=== PATIENT | male | born 1950 | race Caucasian/White ===

== ENCOUNTER 2021-09-07 13:01 | Outpatient (CLI) | payer OTHER, SELFPAY ==
--- NOTE | 2021-09-07 13:00 | MR_ITS ---
WS: [id number] MRI HEAD WITH CONTRAST TECHNIQUE: Sagittal T1, T2 axial, T2 axial FLAIR, axial susceptibility weighted imaging, axial diffus ion weighted images, and coronal T2 images were obtained. Pre and post-T1 axial and post T1 coronal i mages. ADC and FSPGR images. CLINICAL INFORMATION: PROBLEMS WITH MEMORY COMPARISON: None. FINDINGS: No evidence of restricted diffusion to suggest acute ischemia. Ventricular system and basal cisterns are patent. Mild small vessel changes with moderate parenchymal volume loss. Normal posterior fossa. Normal vascular flow voids at the skull base. No extra axial fluid collections. No evidence of mass o r mass effect. Paranasal sinuses and mastoid air cells are well aerated. No hemosiderin on the susceptibly weighted images. Normal optic chiasm and pituitary infundibulum. Advanced symmetric atrophy temporal lobes and hippocampal formations. No abnormal gadolinium enhancement. Normal dural venous sinuses. MR/MR head wo/w con [id number] IMPRESSION: 1. No evidence of restricted diffusion to suggest acute ischemia. 2. Mild small vessel changes with moderate to advanced parenchymal volume loss . 3. Advanced symmetric atrophy temporal lobes and hippocampal formations. 4. No hemosiderin on susceptibly weighted images. 5. No abnormal gadolinium enhancement.
[2021-09-07] MEDS: gadobenate dimeglumine 20 mL vial IV (13:53)
== END 2021-09-07 13:02 | disposition home or self-care (01) ==
PROVIDERS: Visit Provider Emergency Medicine Emergency Medical Services
DX: R41.3 Other amnesia (principal)
CPT/HCPCS: 70553; A9577

== ENCOUNTER → 2021-11-04 13:53 | Outpatient (BNVA) | payer OTHER, SELFPAY | PROVIDERS: Referring Provider Emergency Medicine Emergency Medical Services; Visit Provider Specialist | DX: G30.9 Alzheimer's disease, unspecified (principal); F02.80 Dementia in other diseases classified elsewhere, unspecified severity, without behavioral disturbance, psychotic disturbance, mood disturbance, and anxiety | CPT/HCPCS: 96116; 99204; 99205 ==

== ENCOUNTER 2022-03-08 15:11 | Emergency (ER) | payer OTHER, SELFPAY ==
[2022-03-08 15:19] VITALS: BP 96/55; PULSE 86; RESP 18; TEMP 36.1; O2SAT 94; BMI 24.2
--- NOTE | 2022-03-08 16:00 | CTR_ITS ---
PROCEDURE INFORMATION: Exam: CT Abdomen And Pelvis With Contrast Exam date and time: 03/08/2022 5:48 PM Age: 71 years old Clinical indication: Other: Jaundice TECHNIQUE: Imaging protocol: Computed tomography of the abdomen and pelvis with contrast. Radiation optimization: All CT scans at this facility use at least one of these dose optimization techniques: automated exposure control; mA and/or kV adjustment per patient size (includes targeted exams where dose is matched to clinical indication); or iterative reconstruction. Contrast material: OMNI 300; Contrast volume: 55 ml; Contrast route: INTRAVENOUS (IV); COMPARISON: No relevant prior studies available. RADIATION DOSE METRICS: Total DLP (mGy-cm): 1344.57 FINDINGS: Lungs: Bibasilar atelectasis versus infiltrate. Lingular 8.5 mm pulmonary nodule, dedicated chest CT advised for further evaluation. Right lower lobe 3 cm somewhat dense airspace opacity may reflect a pneumonic infiltrate, and underlying pulmonary nodule is also a consideration, dedicated chest CT could further evaluate this. Heart: Cardiomegaly. Coronary artery atherosclerotic calcifications. Liver: Normal. No mass. Gallbladder and bile ducts: Intrahepatic biliary dilation and dilation of common bile duct to 2 cm with a suspected 2.5 cm mass in the pancreatic head perhaps causing biliary obstruction, further evaluation with MRCP/pancreatic MRI advised as finding is concerning for underlying pancreatic malignancy. Associated dilation of the pancreatic duct is also seen measuring 9.3 mm. Cholecystectomy. Pancreas: See Gallbladder and bile ducts finding. Spleen: Normal. No splenomegaly. Adrenal glands: Normal. No mass. Kidneys and ureters: Normal. No hydronephrosis. Stomach and bowel: Constipation. Diverticulosis without diverticulitis. Appendix: No evidence of appendicitis. Intraperitoneal space: Unremarkable. No free air. No significant fluid collection. Vasculature: Main pulmonary artery is dilated which can be a finding of chronic pulmonary artery hypertension. Lymph nodes: Unremarkable. No enlarged lymph nodes. Urinary bladder: Unremarkable as visualized. Reproductive: Unremarkable as visualized. Bones/joints: Unremarkable. No acute fracture. Soft tissues: Unremarkable. CT/CT abdomen pelvis w con* [id number] IMPRESSION: 1. Intrahepatic biliary dilation and dilation of common bile duct to 2 cm with a suspected 2.5 cm mass in the pancreatic head perhaps causing biliary obstruction, further evaluation with MRCP/pancreatic MRI advised as finding is concerning for underlying pancreatic malignancy. Associated dilation of the pancreatic duct is also seen measuring 9.3 mm. 2. Constipation. 3. Diverticulosis without diverticulitis. 4. Bibasilar atelectasis versus infiltrate. 5. Lingular 8.5 mm pulmonary nodule, dedicated chest CT advised for further evaluation. 6. Right lower lobe 3 cm somewhat dense airspace opacity may reflect a pneumonic infiltrate, and underlying pulmonary nodule is also a consideration, dedicated chest CT could further evaluate this. 7. Cardiomegaly. 8. Coronary artery atherosclerotic calcifications. 9. Main pulmonary artery is dilated which can be a finding of chronic pulmonary artery hypertension. 10. Cholecystectomy.
--- NOTE | 2022-03-08 16:02 | W.ED.GENADLT ---
Documented by User: Kashmir Gutierrez MD 03/08/22 16:07 HPI - General Adult General: Chief complaint: General Medical Stated complaint: JAUNDICE Time Seen by Provider: 03/08/22 15:14 Source: patient and EMS Mode of arrival: EMS Limitations: no limitations History of Present Illness: 71-year-old male who has a history of some mild dementia was sent here today for jaundice. Patient has no complaints he denies any abdominal pain but he is quite jaundiced with scleral icterus. He started a new medicine a few months ago galantamine for his dementia he denies any other changes he has had no vomiting no diarrhea he denies any alcohol abuse or known liver issues. PFSH ED PFSH: Social History Smoking and tobacco status: current every day smoker History of recent travel: No Physical Exam Const: COMMON NORMALS: patient oriented x3 and healthy appearing HENMT: COMMON NORMALS: normocephalic and atraumatic HEAD & SCALP: normocephalic and atraumatic Eye: COMMON NORMALS: Equal, round and reactive pupils present and EOMs intact bilaterally PUPIL: Yes Equal, round and reactive pupils present OTHER: Scleral icterus noted Neck/C-Spine: COMMON NORMALS: full ROM and supple Chest: COMMONS NORMALS: normal inspection of the chest and normal palpation of entire chest wall Resp: COMMON NORMALS: normal respiratory effort, No retractions, No use of accessory muscles and clear to auscultation bilaterally AUSCULTATION: clear to auscultation bilaterally Cardio: COMMON NORMALS: regular rate, regular rhythm and No murmurs present (Cardio) RATE: regular rate RHYTHM: regular rhythm GI: COMMON NORMALS: Normal to inspection, nondistended, normoactive bowel sounds present, Soft to palpation, non-tender and no masses PALPATION: Yes Soft to palpation Extremity: COMMON NORMALS: normal to inspection and full ROM Neuro: COMMON NORMALS: patient oriented x3, moves all extremities and no focal motor deficits Psych: COMMON NORMALS: mental status grossly normal, Normal thought process present and cooperative THOUGHT PROCESS: Normal thought process present Skin: COMMON NORMALS: no rashes or lesions noted and no wounds NARRATIVE SKIN EXAM: Patient is jaundiced GENERAL SKIN EXAM: no rashes or lesions noted Course Vital Signs: Vital signs: Vital Signs Temperature 98.1 F 03/08/22 22:07 Pulse Rate 91 03/08/22 22:07 Respiratory Rate 18 03/08/22 22:07 Blood Pressure 149/71 03/08/22 22:07 Pulse Oximetry 97 03/08/22 22:07 [facility] - General Adult Lab Data : 03/08/22 16:06 03/08/22 16:06 Radiology Impressions Abdomen/Pelvis CT 03/08/22 16:00 IMPRESSION: 1. Intrahepatic biliary dilation and dilation of common bile duct to 2 cm with a suspected 2.5 cm mass in the pancreatic head perhaps causing biliary obstruction, further evaluation with MRCP/pancreatic MRI advised as finding is concerning for underlying pancreatic malignancy. Associated dilation of the pancreatic duct is also seen measuring 9.3 mm. 2. Constipation. 3. Diverticulosis without diverticulitis. 4. Bibasilar atelectasis versus infiltrate. 5. Lingular 8.5 mm pulmonary nodule, dedicated chest CT advised for further evaluation. 6. Right lower lobe 3 cm somewhat dense airspace opacity may reflect a pneumonic infiltrate, and underlying pulmonary nodule is also a consideration, dedicated chest CT could further evaluate this. 7. Cardiomegaly. 8. Coronary artery atherosclerotic calcifications. 9. Main pulmonary artery is dilated which can be a finding of chronic pulmonary artery hypertension. 10. Cholecystectomy. Laboratory Results WBC 7.1 10^3/uL (4.0-10.0) 03/08/22 16:06 RBC 5.27 10^6/uL (4.1-5.3) 03/08/22 16:06 Hgb 16.3 g/dL (11.7-16.6) 03/08/22 16:06 Hct 49.6 % (42.0-52.0) 03/08/22 16:06 MCV 94.1 fl (80-94) H 03/08/22 16:06 MCH 30.9 pg (28.0-34.0) 03/08/22 16:06 MCHC 32.9 g/dL (30.0-36.0) 03/08/22 16:06 RDW 15.2 % (12.1-15.1) H 03/08/22 16:06 Plt Count 226 10^3/cmm (130-400) 03/08/22 16:06 MPV 11.5 fL (7.4-10.4) H 03/08/22 16:06 Neut % (Auto) 78.5 % 03/08/22 16:06 Lymph % (Auto) 12.5 % 03/08/22 16:06 Nicholas % (Auto) 6.6 % 03/08/22 16:06 Eos % (Auto) 0.4 % 03/08/22 16:06 Baso % (Auto) 0.7 % 03/08/22 16:06 Neut # (Auto) 5.59 10^3/uL (1.8-7.7) 03/08/22 16:06 Lymph # (Auto) 0.9 10^3/uL (0.8-4.8) 03/08/22 16:06 Nicholas # (Auto) 0.5 10^3/uL (0.2-0.9) 03/08/22 16:06 Eos # (Auto) 0.0 10^3/uL (0.0-0.8) 03/08/22 16:06 Baso # (Auto) 0.1 10^3/uL (0.0-0.1) 03/08/22 16:06 Nucleated RBC % (auto) 0 % 03/08/22 16:06 Nucleated RBCs # 0.0 /100WBC 03/08/22 16:06 PT 13.50 SECONDS (12.1-14.9) 03/08/22 16:06 INR 1.00 (0.8-1.2) 03/08/22 16:06 Sodium 137 mmol/L (136-145) 03/08/22 16:06 Potassium 3.1 mmol/L (3.5-5.1) L 03/08/22 16:06 Chloride 91 mmol/L (98-107) L 03/08/22 16:06 Carbon Dioxide 31 mmol/L (22-29) H 03/08/22 16:06 Anion Gap 18.1 (5-19) 03/08/22 16:06 BUN 12 mg/dL (8-23) 03/08/22 16:06 Creatinine 0.2 mg/dL (0.7-1.2) L 03/08/22 16:06 GFR Calculation Not Reportable 03/08/22 16:06 Glucose 132 mg/dL (65-115) H 03/08/22 16:06 Calculated Osmolality 286 mOsm/kg (285-295) 03/08/22 16:06 Calcium 9.2 mg/dL (8.5-10.5) 03/08/22 16:06 Total Bilirubin 24.3 mg/dL (0.15-1.2) H* 03/08/22 16:06 Direct Bilirubin > 18.70 mg/dL (0.00-0.30) H 03/08/22 16:06 AST 166 U/L (0-40) H 03/08/22 16:06 ALT 167 U/L (0-41) H 03/08/22 16:06 Alkaline Phosphatase 1112 IU/L (40-130) H* 03/08/22 16:06 Total Protein 5.7 g/dL (6.6-8.7) L 03/08/22 16:06 Albumin 3.2 g/dL (3.5-5.2) L 03/08/22 16:06 Globulin 2.5 g/dL (1.3-4.6) 03/08/22 16:06 Lipase 6 U/L (13-60) L 03/08/22 16:06 Discharge Plan Discharge Condition: Stable Prescriptions: No Action glipizide 10 mg tablet 20 mg PO BID 0RF pravastatin 20 mg tablet 10 mg PO QPM 0RF tamsulosin 0.4 mg capsule 0.4 mg PO QAM 0RF galantamine 4 mg tablet 4 mg PO BID Qty: 60 3RF Rx Instructions: administer with AM and PM meals ferrous sulfate [iron] 325 mg (65 mg iron) Tablet 325 mg PO QAM 0RF metformin 1,000 mg Tablet 500 mg PO BID 0RF Vitamin D3 50 mcg (2,000 unit) Tablet 50 mcg PO QAM 0RF alogliptin 12.5 mg Tablet 12.5 mg PO QAM 0RF empagliflozin 25 mg Tablet 12.5 mg PO QAM 0RF Sign Out Sign Out Data: Patient Sign Out occurred on 03/08/22 at 18:06. Patient's care was discussed, and care was transferred from to Roverto Harris MD. Coding Level of Care Code ED Retail Director for Chg Fwd Exam Comprehensive Documented by User: Roverto Harris MD 03/09/22 05:14 HPI - General Adult General: Chief complaint: General Medical Stated complaint: JAUNDICE Time Seen by Provider: 03/08/22 15:14 PFS ED PFSH: Social History Smoking and tobacco status: current every day smoker History of recent travel: No Course Vital Signs: Vital signs: Vital Signs Temperature 98.1 F 03/08/22 22:07 Pulse Rate 91 03/08/22 22:07 Respiratory Rate 18 03/08/22 22:07 Blood Pressure 149/71 03/08/22 22:07 Pulse Oximetry 97 03/08/22 22:07 MDM - General Adult Medical Decision Making Patient care handoff received from Dr. Gutierrez pending completion of ED evaluation specifically CT scan. CT scan reviewed and notable for suspected pancreatic mass with obstruction of biliary system which likely explains patient's jaundice and elevated bilirubin. Results of ED evaluation were discussed with the patient. Patient requires further evaluation at a facility capable of performing ERCP with stent versus other treatment which is not available at our facility. Patient agreeable to transfer. Patient accepted by Dr. Sarmiento at [facility] in [facility]. Left emergency department with EMS in satisfactory condition Roverto Harris MD Emergency Medicine Lab Data : 03/08/22 16:06 03/08/22 16:06 Radiology Impressions Abdomen/Pelvis CT 03/08/22 16:00 IMPRESSION: 1. Intrahepatic biliary dilation and dilation of common bile duct to 2 cm with a suspected 2.5 cm mass in the pancreatic head perhaps causing biliary obstruction, further evaluation with MRCP/pancreatic MRI advised as finding is concerning for underlying pancreatic malignancy. Associated dilation of the pancreatic duct is also seen measuring 9.3 mm. 2. Constipation. 3. Diverticulosis without diverticulitis. 4. Bibasilar atelectasis versus infiltrate. 5. Lingular 8.5 mm pulmonary nodule, dedicated chest CT advised for further evaluation. 6. Right lower lobe 3 cm somewhat dense airspace opacity may reflect a pneumonic infiltrate, and underlying pulmonary nodule is also a consideration, dedicated chest CT could further evaluate this. 7. Cardiomegaly. 8. Coronary artery atherosclerotic calcifications. 9. Main pulmonary artery is dilated which can be a finding of chronic pulmonary artery hypertension. 10. Cholecystectomy. Laboratory Results WBC 7.1 10^3/uL (4.0-10.0) 03/08/22 16:06 RBC 5.27 10^6/uL (4.1-5.3) 03/08/22 16:06 Hgb 16.3 g/dL (11.7-16.6) 03/08/22 16:06 Hct 49.6 % (42.0-52.0) 03/08/22 16:06 MCV 94.1 fl (80-94) H 03/08/22 16:06 MCH 30.9 pg (28.0-34.0) 03/08/22 16:06 MCHC 32.9 g/dL (30.0-36.0) 03/08/22 16:06 RDW 15.2 % (12.1-15.1) H 03/08/22 16:06 Plt Count 226 10^3/cmm (130-400) 03/08/22 16:06 MPV 11.5 fL (7.4-10.4) H 03/08/22 16:06 Neut % (Auto) 78.5 % 03/08/22 16:06 Lymph % (Auto) 12.5 % 03/08/22 16:06 Nicholas % (Auto) 6.6 % 03/08/22 16:06 Eos % (Auto) 0.4 % 03/08/22 16:06 Baso % (Auto) 0.7 % 03/08/22 16:06 Neut # (Auto) 5.59 10^3/uL (1.8-7.7) 03/08/22 16:06 Lymph # (Auto) 0.9 10^3/uL (0.8-4.8) 03/08/22 16:06 Nicholas # (Auto) 0.5 10^3/uL (0.2-0.9) 03/08/22 16:06 Eos # (Auto) 0.0 10^3/uL (0.0-0.8) 03/08/22 16:06 Baso # (Auto) 0.1 10^3/uL (0.0-0.1) 03/08/22 16:06 Nucleated RBC % (auto) 0 % 03/08/22 16:06 Nucleated RBCs # 0.0 /100WBC 03/08/22 16:06 PT 13.50 SECONDS (12.1-14.9) 03/08/22 16:06 INR 1.00 (0.8-1.2) 03/08/22 16:06 Sodium 137 mmol/L (136-145) 03/08/22 16:06 Potassium 3.1 mmol/L (3.5-5.1) L 03/08/22 16:06 Chloride 91 mmol/L (98-107) L 03/08/22 16:06 Carbon Dioxide 31 mmol/L (22-29) H 03/08/22 16:06 Anion Gap 18.1 (5-19) 03/08/22 16:06 BUN 12 mg/dL (8-23) 03/08/22 16:06 Creatinine 0.2 mg/dL (0.7-1.2) L 03/08/22 16:06 GFR Calculation Not Reportable 03/08/22 16:06 Glucose 132 mg/dL (65-115) H 03/08/22 16:06 Calculated Osmolality 286 mOsm/kg (285-295) 03/08/22 16:06 Calcium 9.2 mg/dL (8.5-10.5) 03/08/22 16:06 Total Bilirubin 24.3 mg/dL (0.15-1.2) H* 03/08/22 16:06 Direct Bilirubin > 18.70 mg/dL (0.00-0.30) H 03/08/22 16:06 AST 166 U/L (0-40) H 03/08/22 16:06 ALT 167 U/L (0-41) H 03/08/22 16:06 Alkaline Phosphatase 1112 IU/L (40-130) H* 03/08/22 16:06 Total Protein 5.7 g/dL (6.6-8.7) L 03/08/22 16:06 Albumin 3.2 g/dL (3.5-5.2) L 03/08/22 16:06 Globulin 2.5 g/dL (1.3-4.6) 03/08/22 16:06 Lipase 6 U/L (13-60) L 03/08/22 16:06 Discharge Plan Discharge Condition: Stable Prescriptions: No Action glipizide 10 mg tablet 20 mg PO BID 0RF pravastatin 20 mg tablet 10 mg PO QPM 0RF tamsulosin 0.4 mg capsule 0.4 mg PO QAM 0RF galantamine 4 mg tablet 4 mg PO BID Qty: 60 3RF Rx Instructions: administer with AM and PM meals ferrous sulfate [iron] 325 mg (65 mg iron) Tablet 325 mg PO QAM 0RF metformin 1,000 mg Tablet 500 mg PO BID 0RF Vitamin D3 50 mcg (2,000 unit) Tablet 50 mcg PO QAM 0RF alogliptin 12.5 mg Tablet 12.5 mg PO QAM 0RF empagliflozin 25 mg Tablet 12.5 mg PO QAM 0RF Sign Out Sign Out Data: Patient Sign Out occurred on 03/08/22 at 18:06. Patient's care was discussed, and care was transferred from to Roverto Harris MD. Coding Level of Care Code ED Retail Director for Mary Fwd Exam Comprehensive
--- NOTE | 2022-03-08 16:17 | PC.PHAR ---
PTS VERIFIED PTS MEDICATIONS-PTS STATES THE PT IS NO LONGER TAKING INSULIN STATES HE HASNT TAKEN FOR 3 WEEKS STATES THE PT IS TAKING ALOGLIPTIN 12.5MG QAM, EMPAGLIFLOZIN 12.5MG QAM, GLIPIZIDE 20MG BID AND METFORMIN 500MG BID
[2022-03-08 16:18] LABS: Basophils # 0.1 10^3/uL (0.0-0.1); Basophils % 0.7 %; Eosinophils % 0.4 %; Hematocrit 49.6 % (42.0-52.0); Hemoglobin 16.3 g/dL (11.7-16.6); Lymphocytes # 0.9 10^3/uL (0.8-4.8); Lymphocytes % 12.5 %; Mean Corpuscular HGB Conc 32.9 g/dL (30.0-36.0); Mean Corpuscular Hemoglobin 30.9 pg (28.0-34.0); Mean Corpuscular Volume 94.1 fl (80-94); Mean Platelet Volume 11.5 fL (7.4-10.4); Monocytes # 0.5 10^3/uL (0.2-0.9); Monocytes % 6.6 %; Neutrophils # 5.59 10^3/uL (1.8-7.7); Neutrophils % 78.5 %; Nucleated Red Blood Cells % 0 %; Platelet Count 226 10^3/cmm (130-400); Red Blood Count 5.27 10^6/uL (4.1-5.3); Red Cell Distribution Width 15.2 % (12.1-15.1); White Blood Count 7.1 10^3/uL (4.0-10.0)
[2022-03-08] MEDS: sodium chloride 0.9% 1,000 ML 999 ML IV (16:33)
[2022-03-08 16:42] LABS: Alanine Aminotransferase 167 U/L (0-41); Albumin Level 3.2 g/dL (3.5-5.2); Blood Urea Nitrogen 12 mg/dL (8-23); Calcium 9.2 mg/dL (8.5-10.5); Carbon Dioxide 31 mmol/L (22-29); Chloride 91 mmol/L (98-107); Globulin 2.5 g/dL (1.3-4.6); Glucose 132 mg/dL (65-115); Osmolality Calculated 286 mOsm/kg (285-295); Sodium 137 mmol/L (136-145); Total Protein 5.7 g/dL (6.6-8.7)
[2022-03-08 16:45] LABS: Creatinine Clr Calc Pharmacy 76.1841
[2022-03-08 16:46] LABS: Anion Gap 18.1 (5-19); Aspartate Amino Transferase 166 U/L (0-40); Potassium 3.1 mmol/L (3.5-5.1)
[2022-03-08 16:50] LABS: Total Bilirubin 24.3 mg/dL (0.15-1.2)
[2022-03-08 16:51] LABS: Alkaline Phosphatase 1112 IU/L (40-130)
[2022-03-08] MEDS: iohexol 300 mg/mL 100 mL Btl IV (17:50)
[2022-03-08 18:27] LABS: Lipase 6 U/L (13-60)
[2022-03-08 18:45] VITALS: BP 121/72; PULSE 84; RESP 12; O2SAT 91
[2022-03-08] MEDS: potassium chloride oral liq 20 mEq/15 mL UDC 40 MEQ PO (19:07)
--- NOTE | 2022-03-08 22:05 | PC.NURSE ---
EMS at bedside for stretcher transport to [place] [id number] via ems. patient in o obivous distress upon transfer to ems stretcher.
[2022-03-08 22:07] VITALS: BP 149/71; PULSE 91; RESP 18; TEMP 36.7; O2SAT 97
== END 2022-03-08 22:09 ==
PROVIDERS: Emergency Medicine; Emergency Provider Emergency Medicine
DX: R17 Unspecified jaundice (principal); E80.7 Disorder of bilirubin metabolism, unspecified; F03.90 Unspecified dementia, unspecified severity, without behavioral disturbance, psychotic disturbance, mood disturbance, and anxiety; E11.9 Type 2 diabetes mellitus without complications; Z79.84 Long term (current) use of oral hypoglycemic drugs
CPT/HCPCS: 36415; 74177; 80053; 82248; 83690; 85025; 85610; 96360; 96361; 99284; J7030; Q9967

== ENCOUNTER 2022-03-29 13:36 | Emergency (ER) | payer OTHER, SELFPAY ==
[2022-03-29] VITALS (8 sets, daily range): BP systolic 94–126; BP diastolic 57–83; PULSE 75–114; RESP 16–23; TEMP 36.4; O2SAT 82–100
--- NOTE | 2022-03-29 16:12 | XRR_ITS ---
PROCEDURE INFORMATION: Exam: XR Chest Exam date and time: 03/29/2022 4:18 PM Age: 71 years old Clinical indication: Other: Hypoxia; Patient HX: PT states he can not remember why he came to the er. Has no chest complaints TECHNIQUE: Imaging protocol: XR of the chest. Views: 1 view. COMPARISON: CT chest con [id number] 03/09/2022 8:45 AM FINDINGS: Lungs: Unremarkable. No consolidation. Pleural spaces: Unremarkable. No pleural effusion. No pneumothorax. Heart/Mediastinum: Unremarkable. No cardiomegaly. Bones/joints: Unremarkable. XR/XR chest 1V portable [id number] IMPRESSION: No acute findings.
--- NOTE | 2022-03-29 17:46 | W.ED.GENADLT ---
Documented by User: Frederic Benjamin DO 04/07/22 18:22 HPI - General Adult General: Chief complaint: General Medical Stated complaint: Low o2, fever Time Seen by Provider: 03/29/22 17:35 Source: patient Mode of arrival: ambulatory Limitations: no limitations History of Present Illness: 71-year-old male presents emergency room with reports of hypoxia and increased swelling of his lower extremities. Patient is seen by home health today and referred to the ER. He has a history of pancreatic CA with ductal obstruction recently was transferred to outside facility and had stents placed he is not getting any treatment for pancreatic cancer at this point he has an upcoming evaluation with Dr. Betancourt to discuss treatment options. He denies any chest pain no fever sweats or chills. Have noticed some swelling in his legs and moderate orthopnea. Onset (ago): minute(s) Location: head Severity: moderate Relieving factors: none Exacerbating factors: none Associated symptoms: Reports confusion and dyspnea; Deny chest pain, cough, diaphoresis, decreased appetite, fevers/chills, headache(s), malaise, nausea, rash, palpitations, seizures, short of breath, syncope, vomiting or weakness Treatments prior to arrival: none Review of Systems Const: Denies: fever(s), chills, malaise or diaphoresis ENMT: Denies: throat pain, ear or mastoid pain, nasal discharge or nasal congestion Card: Reports: orthopnea; Denies: chest pain, palpitations or syncope Resp: Reports: dyspnea; Denies: productive cough or non-productive cough GI: Denies: abdominal pain, nausea or vomiting : Denies: flank pain, difficulty urinating, dysuria, urinary frequency or urinary urgency Skin/Breast: Denies: rash Neuro: Reports: confusion; Denies: headache(s) PFSH ED PFSH: Medical History Adenocarcinoma of head of pancreas Alzheimer disease BPH (benign prostatic hyperplasia) Hyperlipidemia Type 2 diabetes mellitus Surgical History History of appendectomy History of cataract surgery Bilateral cataract excisions History of cholecystectomy S/P ERCP (03/09/22) ERCP with placement of fully covered metal biliary stent Family History Mother CAD (coronary artery disease) Family/Other Cancer Niece - Rare form of cancer that started in her thumb. Other Diabetes Hyperlipidemia Hypertension Denies family history of Clotting disorder Dementia Psychiatric illness Chronic kidney disease (CKD) Suicide Anesthesia complication Bleeding disorder Lung disease Stroke Social History Smoking and tobacco status: never smoked (Chewing tobacco) Alcohol intake: never History of recent travel: No Physical Exam Const: GENERAL APPEARANCE: cooperative and comfortable ORIENTATION/CONSCIOUSNESS: Yes awake, Yes oriented to person, Yes oriented to place and Yes oriented to time HENMT: COMMON NORMALS: normocephalic and atraumatic HEAD & SCALP: normocephalic and atraumatic Resp: AUSCULTATION: crackles and diminished lung sounds Cardio: COMMON NORMALS: regular rate, regular rhythm and No murmurs present (Cardio) RATE: regular rate RHYTHM: regular rhythm GI: COMMON NORMALS: Soft to palpation and No hepatosplenomegaly present AUSCULTATION: Yes normoactive bowel sounds PALPATION: Yes Soft to palpation, No Tenderness to palpation present (GI), No Guarding due to palpation present (GI) and Yes No hepatosplenomegaly present Extremity: COMMON NORMALS: normal to inspection, capillary refill normal, no clubbing, cyanosis or edema, no calf tenderness and no pedal edema Neuro: SENSORIUM/ORIENTATION: Yes oriented to person, Yes oriented to place and Yes oriented to time Skin: COMMON NORMALS: no rashes or lesions noted GENERAL SKIN EXAM: no rashes or lesions noted Course Vital Signs: Vital signs: Vital Signs Temperature 97.6 F 03/29/22 13:53 Pulse Rate 87 03/29/22 21:00 Respiratory Rate 23 H 03/29/22 20:00 Blood Pressure 103/72 03/29/22 21:00 Pulse Oximetry 82 L 03/29/22 22:27 [facility] - General Adult Medical Records I reviewed the patient's medical records. Lab Data I reviewed the patient's lab results. : 03/29/22 17:56 03/29/22 17:56 Radiology Impressions Chest X-Ray 03/29/22 16:12 IMPRESSION: No acute findings. Laboratory Results WBC 7.4 10^3/uL (4.0-10.0) 03/29/22 17:56 RBC 4.95 10^6/uL (4.1-5.3) 03/29/22 17:56 Hgb 15.5 g/dL (11.7-16.6) 03/29/22 17:56 Hct 46.0 % (42.0-52.0) 03/29/22 17:56 MCV 92.9 fl (80-94) 03/29/22 17:56 MCH 31.3 pg (28.0-34.0) 03/29/22 17:56 MCHC 33.7 g/dL (30.0-36.0) 03/29/22 17:56 RDW 15.1 % (12.1-15.1) 03/29/22 17:56 Plt Count 237 10^3/cmm (130-400) 03/29/22 17:56 MPV 11.0 fL (7.4-10.4) H 03/29/22 17:56 Neut % (Auto) 69.5 % 03/29/22 17:56 Lymph % (Auto) 21.8 % 03/29/22 17:56 [place] % (Auto) 7.0 % 03/29/22 17:56 Eos % (Auto) 0.4 % 03/29/22 17:56 Baso % (Auto) 0.5 % 03/29/22 17:56 Neut # (Auto) 5.17 10^3/uL (1.8-7.7) 03/29/22 17:56 Lymph # (Auto) 1.6 10^3/uL (0.8-4.8) 03/29/22 17:56 [place] # (Auto) 0.5 10^3/uL (0.2-0.9) 03/29/22 17:56 Eos # (Auto) 0.0 10^3/uL (0.0-0.8) 03/29/22 17:56 Baso # (Auto) 0.0 10^3/uL (0.0-0.1) 03/29/22 17:56 Nucleated RBC % (auto) 0.3 % 03/29/22 17:56 Nucleated RBCs # 0.0 /100WBC 03/29/22 17:56 Sodium 146 mmol/L (136-145) H 03/29/22 17:56 Potassium 2.4 mmol/L (3.5-5.1) L* 03/29/22 17:56 Chloride 96 mmol/L (98-107) L 03/29/22 17:56 Carbon Dioxide 37 mmol/L (22-29) H 03/29/22 17:56 Anion Gap 15.4 (5-19) 03/29/22 17:56 BUN 8 mg/dL (8-23) 03/29/22 17:56 Creatinine 0.4 mg/dL (0.7-1.2) L 03/29/22 17:56 GFR Calculation Not Reportable 03/29/22 17:56 Glucose 140 mg/dL (65-115) H 03/29/22 17:56 Calculated Osmolality 303 mOsm/kg (285-295) H 03/29/22 17:56 Lactic Acid 2.4 mmol/L (0.5-2.2) H 03/29/22 17:56 Calcium 7.8 mg/dL (8.5-10.5) L 03/29/22 17:56 Total Bilirubin 2.3 mg/dL (0.15-1.2) H 03/29/22 17:56 AST 26 U/L (0-40) 03/29/22 17:56 ALT 32 U/L (0-41) 03/29/22 17:56 Alkaline Phosphatase 199 IU/L (40-130) H 03/29/22 17:56 Troponin T Baseline 67 ng/L (0-15) H 03/29/22 17:56 Troponin T 120 Minute 74.39 ng/L (0-15) H 03/29/22 20:00 Delta Troponin T 7.39 ABS# (0-10) 03/29/22 20:00 NT-Pro-B Natriuret Pep 1290 pg/mL (0-125) H 03/29/22 17:56 Total Protein 5.9 g/dL (6.6-8.7) L 03/29/22 17:56 Albumin 2.9 g/dL (3.5-5.2) L 03/29/22 17:56 Globulin 3.0 g/dL (1.3-4.6) 03/29/22 17:56 Procalcitonin 0.09 ng/mL (0-0.5) 03/29/22 17:56 Discharge Plan Discharge Patient Disposition: Home Clinical Impression: Hypoxia, Edema of both lower legs, Hypokalemia Condition: Stable Prescriptions: New Lasix 20 mg tablet 20 mg PO QAM Qty: 30 0RF No Action tamsulosin 0.4 mg capsule 0.4 mg PO QAM 0RF pravastatin 20 mg tablet 20 mg PO QPM 0RF galantamine 4 mg tablet 4 mg PO BID Qty: 60 3RF Rx Instructions: administer with AM and PM meals ferrous sulfate [iron] 325 mg (65 mg iron) Tablet 325 mg PO QAM 0RF metformin 1,000 mg Tablet 500 mg PO BID 0RF Vitamin D3 50 mcg (2,000 unit) Tablet 50 mcg PO QAM 0RF alogliptin 12.5 mg Tablet 12.5 mg PO QAM 0RF empagliflozin 25 mg tablet 25 mg PO QAM 0RF Discharge Orders: Discharge ED (Routine); Ordered 03/29/22 Ordered By: Kashmir Gutierrez Other Ambulatory Orders: DME: Oxygen (Order) Location: None Selected Ordered By: Kashmir Gutierrez Discharge Diet: Advance as tolerated Discharge Activity: Resume usual activity Patient Instructions: Hypokalemia (ED), Leg Edema (ED) Coding Level of Care Code ED Glazing Department Supervisor for Chg Fwd Exam Detailed Documented by User: Kashmir Gutierrez MD 03/29/22 22:44 HPI - General Adult General: Chief complaint: General Medical Stated complaint: Low o2, fever Time Seen by Provider: 03/29/22 17:35 PFSH ED PFSH: Medical History Adenocarcinoma of head of pancreas Alzheimer disease BPH (benign prostatic hyperplasia) Hyperlipidemia Type 2 diabetes mellitus Surgical History History of appendectomy History of cataract surgery Bilateral cataract excisions History of cholecystectomy S/P ERCP (03/09/22) ERCP with placement of fully covered metal biliary stent Family History Mother CAD (coronary artery disease) Family/Other Cancer Niece - Rare form of cancer that started in her thumb. Other Diabetes Hyperlipidemia Hypertension Denies family history of Clotting disorder Dementia Psychiatric illness Chronic kidney disease (CKD) Suicide Anesthesia complication Bleeding disorder Lung disease Stroke Social History Smoking and tobacco status: never smoked (Chewing tobacco) Alcohol intake: never History of recent travel: No Course Vital Signs: Vital signs: Vital Signs Temperature 97.6 F 03/29/22 13:53 Pulse Rate 87 03/29/22 21:00 Respiratory Rate 23 H 03/29/22 20:00 Blood Pressure 103/72 03/29/22 21:00 Pulse Oximetry 82 L 03/29/22 22:27 MDM - General Adult Medical Decision Making Patient presents for some lower extremity edema along with some shortness of breath. He is feeling improved after IV Lasix. He is requiring 2 L of oxygen he is also hypokalemic. I did offer and recommend admission he states he does not want to stay in the hospital and wants to go home. We will set him up on home oxygen we will prescribe him potassium for home as well. Lab Data : 03/29/22 17:56 03/29/22 17:56 Radiology Impressions Chest X-Ray 03/29/22 16:12
[2022-03-29 18:06] LABS: Basophils % 0.5 %; Eosinophils % 0.4 %; Hemoglobin 15.5 g/dL (11.7-16.6); Lymphocytes # 1.6 10^3/uL (0.8-4.8); Lymphocytes % 21.8 %; Mean Corpuscular HGB Conc 33.7 g/dL (30.0-36.0); Mean Corpuscular Hemoglobin 31.3 pg (28.0-34.0); Mean Corpuscular Volume 92.9 fl (80-94); Monocytes # 0.5 10^3/uL (0.2-0.9); Neutrophils # 5.17 10^3/uL (1.8-7.7); Neutrophils % 69.5 %; Nucleated Red Blood Cells % 0.3 %; Platelet Count 237 10^3/cmm (130-400); Red Blood Count 4.95 10^6/uL (4.1-5.3); Red Cell Distribution Width 15.1 % (12.1-15.1); White Blood Count 7.4 10^3/uL (4.0-10.0)
[2022-03-29 18:22] LABS: Lactic Sepsis W/Reflex 2.4 mmol/L (0.5-2.2)
[2022-03-29 18:24] LABS: Troponin(5th) Baseline 67 ng/L (0-15)
[2022-03-29 18:33] LABS: NT Pro B Type Natriuretic Pept 1290 pg/mL (0-125); Procalcitonin 0.09 ng/mL (0-0.5)
[2022-03-29 18:44] LABS: Alanine Aminotransferase 32 U/L (0-41); Albumin Level 2.9 g/dL (3.5-5.2); Alkaline Phosphatase 199 IU/L (40-130); Anion Gap 15.4 (5-19); Aspartate Amino Transferase 26 U/L (0-40); Blood Urea Nitrogen 8 mg/dL (8-23); Calcium 7.8 mg/dL (8.5-10.5); Carbon Dioxide 37 mmol/L (22-29); Chloride 96 mmol/L (98-107); Glucose 140 mg/dL (65-115); Osmolality Calculated 303 mOsm/kg (285-295); Sodium 146 mmol/L (136-145); Total Bilirubin 2.3 mg/dL (0.15-1.2); Total Protein 5.9 g/dL (6.6-8.7)
[2022-03-29 19:07] LABS: Potassium 2.4 mmol/L (3.5-5.1)
[2022-03-29] MEDS: potassium chloride ER 20 mEq Tablet 40 MEQ PO ×2 (19:32→20:08)
[2022-03-29] MEDS: FUROsemide 10 mg/mL SDV 4mL 40 MG IVP (19:32)
[2022-03-29 19:47] LABS: Reflex Lactate Order REFLEX LACTIC ORDERD
[2022-03-29 20:29] LABS: Troponin 5 2HR 74.39 ng/L (0-15); Troponin 5 2HR Delta 7.39 ABS# (0-10)
--- NOTE | 2022-03-29 21:03 | PC.NURSE ---
Patient refused HOME O2 due to financial reasoning. Patient advised by physician of need for O2. [facility].
--- NOTE | 2022-03-29 22:13 | ECG_ITS ---
[facility] Test Date: 2022-03-29 Pat Name: Agus Duff Department: Room: Gender: Male [employer]: : 1950 Requested By: Bernie Rosales Order Number: [id number] Sasha MD: Donna Bauer M.D. Measurements Intervals [place] Rate: 92 P: 73 [place]: 127 QRS: 60 QRSD: 102 T: 71 QT: 417 QTc: 516 Interpretive Statements SINUS RHYTHM WITH FREQUENT VENTRICULAR PREMATURE COMPLEXES WITH FREQUENT SUPRAVENTRICULAR PREMATURE COMPLEXES ST DEVIATION AND MODERATE T-WAVE ABNORMALITY, CONSIDER ANTERIOR ISCHEMIA [-0.1+ mV T-WAVE IN V3/V4] No previous ECG available for comparison Electronically Signed On 03-29-2022 19:50:44 CDT by Donna Bauer M.D. [id number]
== END 2022-03-29 22:45 | disposition home or self-care (01) ==
PROVIDERS: Physician Assistant; Emergency Provider Emergency Medicine
DX: R09.02 Hypoxemia (principal); R60.0 Localized edema; E87.6 Hypokalemia
CPT/HCPCS: 71045; 80053; 83605; 83880; 84145; 84484; 85025; 93005; 96374; 99284; J1940

== ENCOUNTER 2022-03-31 10:08 | Oncology outpatient (recurring) (ONCR) | payer OTHER, SELFPAY ==
[2022-03-31 12:45] LABS: Basophils # 0.1 10^3/uL (0.0-0.1); Basophils % 0.6 %; Eosinophils % 0.3 %; Hematocrit 47.9 % (42.0-52.0); Hemoglobin 15.6 g/dL (11.7-16.6); Lymphocytes # 1.8 10^3/uL (0.8-4.8); Lymphocytes % 19.6 %; Mean Corpuscular HGB Conc 32.6 g/dL (30.0-36.0); Mean Platelet Volume 11.1 fL (7.4-10.4); Monocytes # 0.5 10^3/uL (0.2-0.9); Monocytes % 5.4 %; Neutrophils # 6.67 10^3/uL (1.8-7.7); Neutrophils % 73.5 %; Nucleated Red Blood Cells % 0 %; Platelet Count 247 10^3/cmm (130-400); Red Blood Count 5.04 10^6/uL (4.1-5.3); Red Cell Distribution Width 15.3 % (12.1-15.1); White Blood Count 9.1 10^3/uL (4.0-10.0)
[2022-03-31 13:26] LABS: Carcinoembryonic Antigen 16.4 ng/mL (0.0-4.7)
[2022-03-31 13:37] LABS: Alanine Aminotransferase 34 U/L (0-41); Albumin Level 3.5 g/dL (3.5-5.2); Alkaline Phosphatase 203 IU/L (40-130); Aspartate Amino Transferase 29 U/L (0-40); Blood Urea Nitrogen 10 mg/dL (8-23); Chloride 94 mmol/L (98-107); Globulin 2.9 g/dL (1.3-4.6); Glucose 191 mg/dL (65-115); Osmolality Calculated 302 mOsm/kg (285-295); Sodium 144 mmol/L (136-145); Total Bilirubin 2.4 mg/dL (0.15-1.2); Total Protein 6.4 g/dL (6.6-8.7)
[2022-03-31 14:09] LABS: Carbon Dioxide 44 mmol/L (22-29)
[2022-03-31 19:48] LABS: Cancer Antigen 19 9 > 1000 U/mL (0-35)
== END 2022-03-31 23:59 | disposition home or self-care (01) ==
PROVIDERS: Visit Provider Internal Medicine Medical Oncology
DX: C25.0 Malignant neoplasm of head of pancreas (principal); R74.01 Elevation of levels of liver transaminase levels; K80.51 Calculus of bile duct without cholangitis or cholecystitis with obstruction; F17.220 Nicotine dependence, chewing tobacco, uncomplicated; R91.1 Solitary pulmonary nodule; Z79.899 Other long term (current) drug therapy
CPT/HCPCS: 80053; 82378; 85025; 86301; 99205

== ENCOUNTER 2022-04-16 11:18 | Oncology outpatient (recurring) (ONCR) | payer OTHER, SELFPAY | END 2022-04-16 23:59 | disposition home or self-care (01) | PROVIDERS: Visit Provider Internal Medicine Medical Oncology | DX: C25.0 Malignant neoplasm of head of pancreas (principal); C78.7 Secondary malignant neoplasm of liver and intrahepatic bile duct; C77.1 Secondary and unspecified malignant neoplasm of intrathoracic lymph nodes | CPT/HCPCS: 99215 ==